=== PATIENT | female | born 1985 ===

== ENCOUNTER 2021-01-24 11:12 | Outpatient (REF) | payer BC, SELFPAY | END 2021-01-24 11:13 | disposition home or self-care (01) | LOC: HO.LAB 11:12 | PROVIDERS: Visit Provider Hospitalist | DX: J02.8 Acute pharyngitis due to other specified organisms (principal); B97.89 Other viral agents as the cause of diseases classified elsewhere; Z20.822 Contact with and (suspected) exposure to COVID-19 | CPT/HCPCS: U0003; U0005 ==